=== PATIENT | male | born 1935 | race Caucasian/White ===

== ENCOUNTER 2019-11-30 16:30 | Emergency (ER) | payer MEDICARE, OTHER ==
[2019-11-30] MEDS ORDERED: Sodium Chloride 0.9% 1,000 ML IV SCH (17:30)
--- NOTE | 2019-11-30 18:23 | EDM.PDOC ---
<Cherise Green - Last Filed: 11/30/19 18:18> ED HPI GENERAL MEDICAL PROBLEM - General Chief Complaint: General Stated Complaint: MEDICAL VIA NORTH Time Seen by Provider: 11/30/19 16:40 Source of Information: Reports: Patient History Limitations: Reports: No Limitations - History of Present Illness INITIAL COMMENTS - FREE TEXT/NARRATIVE: pt arrived with a low grade temp and pt has bloody urine. Pt is having some chest pain. This has been having discomfort for several days. Onset: Today, Sudden Duration: Hour(s): Location: Reports: Chest, Abdomen Associated Symptoms: Reports: Chest Pain, Fever/Chills Chest Pain Score (Numeric/FACES): 3 - Related Data Allergies Allergy/AdvReac Type Severity Reaction Status Date / Time fosinopril Allergy Cannot Uncoded 11/30/19 17:00 Remember Home Meds: Home Meds Albuterol Sulfate [Albuterol Sulfate Hfa] 2 inh INH QID 11/30/19 [History] Allopurinol [Zyloprim] 100 mg PO BID 11/30/19 [History] Aspirin 81 mg PO DAILY 11/30/19 [History] Budesonide/Formoterol Fumarate [Symbicort 160-4.5 Mcg Inhaler] 4.5 gm IH BID 03/14 [History] Ciprofloxacin [Ciprofloxacin HCl] 250 mg PO BID 11/30/19 [History] Escitalopram Oxalate 10 mg PO DAILY 11/30/19 [History] Ferrous Gluconate 324 mg PO DAILY 11/30/19 [History] Furosemide [Lasix] 40 mg PO DAILY 11/30/19 [History] Gemfibrozil [Lopid] 600 mg PO BID 11/30/19 [History] Omeprazole 20 mg PO BIDAC 11/30/19 [History] Potassium Chloride 20 meq PO DAILY 11/30/19 [History] Sennosides/Docusate Sodium [Senna-S] 1 tab PO DAILY 11/30/19 [History] Valsartan [Diovan] 80 mg PO DAILY 11/30/19 [History] atorvaSTATin [Lipitor] 80 mg PO BEDTIME 11/30/19 [History] hydroCHLOROthiazide [Hydrochlorothiazide] 25 mg PO DAILY 11/30/19 [History] metFORMIN [Glucophage XR] 250 mg PO DAILY 11/30/19 [History] Social & Family History - Tobacco Use Smoking Status *Q: Never Smoker - Caffeine Use Caffeine Use: Reports: Coffee, Soda, Tea - Recreational Drug Use Recreational Drug Use: No ED ROS GENERAL - Review of Systems Review Of Systems: See Below Constitutional: Reports: Fever, Weakness HEENT: Reports: No Symptoms Respiratory: Reports: No Symptoms Cardiovascular: Reports: Chest Pain Endocrine: Reports: No Symptoms GI/Abdominal: Reports: Abdominal Pain, Other (pt is having some rt upper abdomanal pain) : Reports: Hematuria Musculoskeletal: Reports: No Symptoms Skin: Reports: No Symptoms ED EXAM, GENERAL - Physical Exam Exam: See Below Free Text/Narrative:: pt was sent from the snf with bloody urine and a low grade temp. On arrival here he talked about chest pain that he had for several days. He states the pain is there most of the time. Exam Limited By: No Limitations General Appearance: Alert, Anxious, Other (pt does not appear uncomfortable. ) Ears: Normal TMs Nose: Normal Inspection Throat/Mouth: Normal Inspection Head: Atraumatic Neck: Normal Inspection Respiratory/Chest: No Respiratory Distress Cardiovascular: Regular Rate, Rhythm, Tachycardia GI/Abdominal: Soft, Other (pt is tender in the rt upper abdoman. ) (Male) Exam: Deferred Rectal (Males) Exam: Deferred Back Exam: Normal Inspection Extremities: Normal Inspection Course - Vital Signs Last Recorded V/S: Last Vital Signs Temp 99.3 F 11/30/19 16:38 Pulse 82 11/30/19 21:37 Resp 19 11/30/19 21:37 BP 163/77 H 11/30/19 21:37 Pulse Ox 94 L 11/30/19 21:37 - Orders/Labs/Meds Orders: Active Orders 24 hr Category Date Time Status EKG Documentation Completion [RC] ASDIRECTED Care 11/30/19 18:25 Active Chest 1V Frontal [CR] Stat Exams 11/30/19 17:17 Taken Chest 2V [CR] Stat Exams 11/30/19 18:39 Taken Sodium Chloride 0.9% [Normal Saline] 1,000 ml Med 11/30/19 17:30 Active IV ASDIRECTED EKG 12 Lead [EK] Routine Ther 11/30/19 18:25 Ordered Medication Orders Sodium Chloride (Normal Saline) 1,000 mls @ 999 mls/hr IV ASDIRECTED DARION Last Admin: 11/30/19 18:16 Dose: 999 mls/hr Labs: Laboratory Tests 11/30/19 11/30/19 11/30/19 Range/Units 17:24 17:24 17:24 WBC 13.8 H (4.5-11.0) K/uL RBC 3.71 L (4.30-5.90) M/uL Hgb 10.7 L (12.0-15.0) g/dL Hct 34.6 L (40.0-54.0) % MCV 93 (80-98) fL MCH 29 (27-31) pg MCHC 31 L (32-36) % Plt Count 320 (150-400) K/uL Neut % (Auto) 80 H (36-66) % Lymph % (Auto) 9 L (24-44) % [place] % (Auto) 9 H (2-6) % Eos % (Auto) 2 (2-4) % Baso % (Auto) 0 (0-1) % Sodium 141 (140-148) mmol/L Potassium 4.1 (3.6-5.2) mmol/L Chloride 102 (100-108) mmol/L Carbon Dioxide 27 (21-32) mmol/L Anion Gap 12.5 (5.0-14.0) mmol/L BUN 49 H (7-18) mg/dL Creatinine 3.0 H (0.8-1.3) mg/dL Est Cr Clr Drug Dosing 20.84 mL/min Estimated GFR (MDRD) 20 L (>60) Glucose 131 H (74-106) mg/dL Lactic Acid 1.4 (0.4-2.0) mmol/L Calcium 8.2 L (8.5-10.1) mg/dL Total Bilirubin 0.2 (0.2-1.0) mg/dL AST 18 (15-37) U/L ALT 13 (12-78) U/L Alkaline Phosphatase 80 (46-116) U/L Troponin I < 0.017 (0.000-0.056) ng/mL Total Protein 6.4 (6.4-8.2) g/dL Albumin 2.7 L (3.4-5.0) g/dL Globulin 3.7 H (2.3-3.5) g/dL Albumin/Globulin Ratio 0.7 L (1.2-2.2) Lipase (73-393) U/L Urine Color (YELLOW) Urine Appearance (CLEAR) Urine pH (5.0-8.0) Ur Specific [place] (1.008-1.030) Urine Protein (NEGATIVE) mg/dL Urine Glucose (UA) (NEGATIVE) mg/dL Urine Ketones (NEGATIVE) mg/dL Urine Occult Blood (NEGATIVE) Urine Nitrite (NEGATIVE) Urine Bilirubin (NEGATIVE) Urine Urobilinogen (0.2-1.0) EU/dL Ur Leukocyte Esterase (NEGATIVE) Urine RBC (0-5) Urine WBC (0-5) Ur Epithelial Cells Amorphous Sediment Urine Bacteria Urine Mucus 11/30/19 11/30/19 Range/Units 17:24 19:16 WBC (4.5-11.0) K/uL RBC (4.30-5.90) M/uL Hgb (12.0-15.0) g/dL Hct (40.0-54.0) % MCV (80-98) fL MCH (27-31) pg MCHC (32-36) % Plt Count (150-400) K/uL Neut % (Auto) (36-66) % Lymph % (Auto) (24-44) % [place] % (Auto) (2-6) % Eos % (Auto) (2-4) % Baso % (Auto) (0-1) % Sodium (140-148) mmol/L Potassium (3.6-5.2) mmol/L Chloride (100-108) mmol/L Carbon Dioxide (21-32) mmol/L Anion Gap (5.0-14.0) mmol/L BUN (7-18) mg/dL Creatinine (0.8-1.3) mg/dL Est Cr Clr Drug Dosing mL/min Estimated GFR (MDRD) (>60) Glucose (74-106) mg/dL Lactic Acid (0.4-2.0) mmol/L Calcium (8.5-10.1) mg/dL Total Bilirubin (0.2-1.0) mg/dL AST (15-37) U/L ALT (12-78) U/L Alkaline Phosphatase (46-116) U/L Troponin I (0.000-0.056) ng/mL Total Protein (6.4-8.2) g/dL Albumin (3.4-5.0) g/dL Globulin (2.3-3.5) g/dL Albumin/Globulin Ratio (1.2-2.2) Lipase 277 (73-393) U/L Urine Color Red A (YELLOW) Urine Appearance Cloudy A (CLEAR) Urine pH 6.5 (5.0-8.0) Ur Specific [place] 1.020 (1.008-1.030) Urine Protein 100 H (NEGATIVE) mg/dL Urine Glucose (UA) Negative (NEGATIVE) mg/dL Urine Ketones Negative (NEGATIVE) mg/dL Urine Occult Blood Large H (NEGATIVE) Urine Nitrite Negative (NEGATIVE) Urine Bilirubin Small H (NEGATIVE) Urine Urobilinogen 0.2 (0.2-1.0) EU/dL Ur Leukocyte Esterase Negative (NEGATIVE) Urine RBC Packed H (0-5) Urine WBC 0-5 (0-5) Ur Epithelial Cells Not seen Amorphous Sediment Not seen Urine Bacteria Few Urine Mucus Not seen Meds: Medications Generic Name Dose Route Start Last Admin Trade Name Freq PRN Reason Stop Dose Admin Sodium Chloride 1,000 mls @ 999 mls/hr 11/30/19 17:30 11/30/19 18:16 Normal Saline IV 999 mls/hr ASDIRECTED DARION Administration - Re-Assessments/Exams Free Text/Narrative Re-Assessment/Exam: 11/30/19 18:26 pt has a creatnine of 3 and a gfr of 20. A urine has not been obtained at this point. Departure - Departure Disposition: DC/Tfer to [facility] 02 Clinical Impression: Pelviectasis of kidney - Discharge Information Referrals: Alden Merchant MD [Primary Care Provider] - Forms: ED Department Discharge Sepsis Event Note - Evaluation Sepsis Screening Result: No Definite Risk - Focused Exam Vital Signs: Vital Signs Temp Pulse Resp BP Pulse Ox 11/30/19 21:37 82 19 163/77 H 94 L 11/30/19 20:19 88 14 142/52 H 92 L 11/30/19 18:44 80 23 H 155/66 H 96 11/30/19 17:33 84 13 168/70 H 98 11/30/19 17:09 93 32 H 188/79 H 97 11/30/19 16:38 99.3 F 85 17 158/62 H 97 Date Exam was Performed: 11/30/19 Time Exam was Performed: 18:18 - My Orders Last 24 Hours: My Active Orders 11/30/19 18:39 Chest 2V [CR] Stat - Assessment/Plan Last 24 Hours: My Active Orders 11/30/19 18:39 Chest 2V [CR] Stat <OfficerSergio - Last Filed: 11/30/19 22:33> Course - Re-Assessments/Exams Free Text/Narrative Re-Assessment/Exam: Took over care from Dr. Green at 1900 reexamined on the patient he is severely demented the history is unreliable on exam he is tender to the abdomen review of lab work does show significant hematuria of uncertain etiology 11/30/19 19:58 Departure - Departure Time of Disposition: 22:33 Condition: Poor Sepsis Event Note - Focused Exam Date Exam was Performed: 11/30/19 Time Exam was Performed: 22:32 - Assessment/Plan Plan: Took over care from Dr. Green at 1900 Assessment Acuity = acute Site and laterality = left renal pelviectasis Etiology = unknown Manifestations = hematuria Location of injury = Home Lab values = WBC elevated at 13.8 consistent leukocytosis, hemoglobin low at 10.7 consistent normochromic anemia creatinine elevated at 3.0 consistent with acute renal failure stage G4 on top of chronic his baseline is around 2.0 lactic acid normal 1.8 troponin was negative chest x-ray shows no acute process CT scan describes the pelviectasis above Plan Call discussed case with Dr. Ordaz emergency room physician at [facility] he kindly accepted the patient at 2228 will be transported via EMS ground This note was dictated using RV ID voice recognition software please call with any questions on syntax or grammar.
--- NOTE | 2019-11-30 21:05 | CRLCT ---
INDICATION: Abdominal pain, hematuria TECHNIQUE: CT Abdomen and pelvis without i.v. contrast. Coronal and sagittal reformats were obtained. COMPARISON: None FINDINGS: Lower chest: Unremarkable. Liver: Unremarkable. Spleen: Unremarkable. Pancreas: Unremarkable. Gallbladder: Previous cholecystectomy noted without significant intra- or extrahepatic biliary ductal dilatation seen. Kidney: Mild left renal pelviectasis is present with hyperdense material seen in the left renal pelvis and left ureter, likely due to blood products from hematuria. The source of bleeding is not identified on noncontrast imaging. There are numerous hypodense and hyperdense renal lesions present bilaterally measuring up to 3.2 cm. These are incompletely characterized without the use of intravenous contrast. Adrenal: Unremarkable. Bowel: Unremarkable. The appendix is normal in appearance and size. Vascular: There is an infrarenal abdominal aortic aneurysm with an aneurysm sac measuring 4.8 cm in maximal short axis diameter and status post endovascular stenting. Lymph: Unremarkable. Peritoneum: Unremarkable. No pneumoperitoneum is seen. No significant ascites is noted. Pelvis: Unremarkable. Soft tissue: Unremarkable. Bone: Unremarkable for age. IMPRESSION: 1. Mild left renal pelviectasis is present with hyperdense material seen in the left renal pelvis and left ureter, likely due to blood products from hematuria. The source of bleeding is not identified on noncontrast imaging. Dictated by Toni Bhatti MD @ 11/30/2019 9:03:08 PM Please note that all CT scans at this facility use dose modulation, iterative reconstruction, and/or weight-based dosing when appropriate to reduce radiation dose to as low as reasonably achievable. Dictated by: Toni Bhatti MD @ 11/30/2019 21:04:23 (Electronically Signed)
--- NOTE | 2019-12-01 08:37 | CR ---
CHEST: Portable 11/30/2019 at 5:35 PM CLINICAL HISTORY:Chest pain COMPARISON:None FINDINGS: Heart size is normal. There has been previous sternotomy. There are atherosclerotic changes in the aorta.. Lung [place] are hyperaerated. There are no effusions.. Impression: Changes of COPD Previous sternotomy. No acute cardiopulmonary process
--- NOTE | 2019-12-01 08:40 | CR ---
CHEST: 2 view CLINICAL HISTORY:Chest pain COMPARISON:Earlier same day FINDINGS: Heart size and pulmonary vascularity are normal. Patient has had previous sternotomy. There are atherosclerotic changes in the aorta.. Lung [place] are hyperaerated but clear. Impression: No acute cardiopulmonary process COPD There are atherosclerotic changes in the aorta.
== END 2019-12-01 00:32 ==
LOC: JP.ED 16:30
DX: N13.30 Unspecified hydronephrosis (principal); Z88.8 Allergy status to other drugs, medicaments and biological substances; Z79.82 Long term (current) use of aspirin; Z79.899 Other long term (current) drug therapy; Z79.84 Long term (current) use of oral hypoglycemic drugs
CPT/HCPCS: 36415; 71045; 71046; 74176; 80053; 81001; 83605; 83690; 84484; 85025; 93005; 93010; 96360; 99285; J7030

== ENCOUNTER 2020-06-08 14:56 | Emergency (ER) | payer MEDICARE ==
--- NOTE | 2020-06-08 15:38 | EDM.PDOC ---
ED HPI GENERAL MEDICAL PROBLEM - General Chief Complaint: Genitourinary Problem Stated Complaint: MEDICAL VIA NORTH Time Seen by Provider: 06/08/20 15:20 Source of Information: Reports: Patient, EMS, [facility] Records History Limitations: Reports: Physical Impairment (Patient has significant dementia, questions are answered inconsistently) - History of Present Illness INITIAL COMMENTS - FREE TEXT/NARRATIVE: 84-year-old male, local group home resident developed hematuria today. This happened a few months ago and according to the family he needed "emergency surgery". He complains of chronic diffuse pain. He is acting chilled but is not febrile. Onset: Unknown/Unsure Associated Symptoms: Reports: Fever/Chills (Patient feels chilled but does not have a fever) - Related Data Allergies Allergy/AdvReac Type Severity Reaction Status Date / Time fosinopril Allergy Cannot Uncoded 06/08/20 15:22 Remember Home Meds: Home Meds Albuterol Sulfate [Albuterol Sulfate Hfa] 2 inh INH QID 11/30/19 [History] Allopurinol [Zyloprim] 100 mg PO BID 11/30/19 [History] Aspirin 81 mg PO DAILY 11/30/19 [History] Budesonide/Formoterol Fumarate [Symbicort 160-4.5 Mcg Inhaler] 4.5 gm IH BID 11/30/19 [History] Escitalopram Oxalate 10 mg PO DAILY 11/30/19 [History] Ferrous Gluconate 324 mg PO DAILY 11/30/19 [History] Omeprazole 20 mg PO BIDAC 11/30/19 [History] Potassium Chloride 20 meq PO DAILY 11/30/19 [History] Sennosides/Docusate Sodium [Senna-S] 1 tab PO DAILY 11/30/19 [History] atorvaSTATin [Lipitor] 80 mg PO BEDTIME 11/30/19 [History] gemfibroziL [Lopid] 600 mg PO BID 11/30/19 [History] hydroCHLOROthiazide [Hydrochlorothiazide] 25 mg PO DAILY 11/30/19 [History] metFORMIN [Glucophage XR] 250 mg PO DAILY 11/30/19 [History] Nystatin 1 applic TOP TID 06/08/20 [History] Tamsulosin HCl 1 tab PO DAILY 06/08/20 [History] Torsemide 40 mg PO DAILY 06/08/20 [History] Past Medical History HEENT History: Reports: Impaired Vision Cardiovascular History: Reports: Heart Failure, Hypertension Respiratory History: Reports: COPD, Sleep Apnea Gastrointestinal History: Reports: Chronic Constipation, GERD Genitourinary History: Reports: Other (See Below) Other Genitourinary History: blood in urine Musculoskeletal History: Reports: Gout, Other (See Below) Other Musculoskeletal History: history of falls. generalized weakness Neurological History: Reports: CVA Psychiatric History: Reports: Dementia Endocrine/Metabolic History: Reports: Diabetes, Type II, Hypothyroidism Hematologic History: Reports: Anemia, Iron Deficiency Social & Family History - Caffeine Use Caffeine Use: Reports: Coffee, Soda, Tea ED ROS GENERAL - Review of Systems Review Of Systems: See Below Constitutional: Reports: Chills, Malaise HEENT: Reports: No Symptoms Respiratory: Denies: Shortness of Breath Cardiovascular: Reports: Other (Chronic peripheral edema). Denies: Chest Pain GI/Abdominal: Reports: Abdominal Pain. Denies: Nausea, Vomiting Neurological: Reports: Other (Significant dementia) ED EXAM, RENAL/ - Physical Exam Exam: See Below Exam Limited By: No Limitations General Appearance: Alert, No Apparent Distress, Other (Very confused chron ically, inconsistent answers) Eye Exam: Bilateral Eye: Normal Inspection Head: Atraumatic Respiratory/Chest: No Respiratory Distress Cardiovascular: Regular Rate, Rhythm GI/Abdominal: Other (Reacts with tenderness to palpation across the lower abdomen) (Male) Exam: No Hernia, Other (There is some blood at the meatus). No: Inguinal Lymphadenopathy, Scrotal Swelling Neurological: Alert, Confused. No: Oriented Skin Exam: Other (Irregular superficial macular erythematous rash in the groin creases especially on the right) Course - Vital Signs Last Recorded V/S: Last Vital Signs Temp 97.3 F 06/08/20 15:49 Pulse 99 06/08/20 17:10 Resp 26 H 06/08/20 15:49 BP 132/58 L 06/08/20 17:10 Pulse Ox 98 06/08/20 15:49 - Orders/Labs/Meds Labs: Laboratory Tests 06/08/20 06/08/20 06/08/20 Range/Units 15:28 15:40 15:40 WBC 17.3 H (4.5-11.0) K/uL RBC 4.39 (4.30-5.90) M/uL Hgb 12.8 D (12.0-15.0) g/dL Hct 40.3 (40.0-54.0) % MCV 92 (80-98) fL MCH 29 (27-31) pg MCHC 32 (32-36) % Plt Count 333 (150-400) K/uL Neut % (Auto) 87 H (36-66) % Lymph % (Auto) 7 L (24-44) % [place] % (Auto) 6 (2-6) % Eos % (Auto) 0 L (2-4) % Baso % (Auto) 0 (0-1) % PT 10.8 (9.5-12.0) sec INR 0.99 (0.80-1.20) Sodium (140-148) mmol/L Potassium (3.6-5.2) mmol/L Chloride (100-108) mmol/L Carbon Dioxide (21-32) mmol/L Anion Gap (5.0-14.0) mmol/L BUN (7-18) mg/dL Creatinine (0.8-1.3) mg/dL Est Cr Clr Drug Dosing mL/min Estimated GFR (MDRD) (>60) Glucose (74-106) mg/dL Calcium (8.5-10.1) mg/dL Total Bilirubin (0.2-1.0) mg/dL AST (15-37) U/L ALT (12-78) U/L Alkaline Phosphatase (46-116) U/L Total Protein (6.4-8.2) g/dL Albumin (3.4-5.0) g/dL Globulin (2.3-3.5) g/dL Albumin/Globulin Ratio (1.2-2.2) Urine Color Red A (YELLOW) Urine Appearance Cloudy A (CLEAR) Urine pH 5.5 (5.0-8.0) Ur Specific [place] 1.015 (1.008-1.030) Urine Protein >=300 H (NEGATIVE) mg/dL Urine Glucose (UA) Negative (NEGATIVE) mg/dL Urine Ketones Trace H (NEGATIVE) mg/dL Urine Occult Blood Large H (NEGATIVE) Urine Nitrite Positive H (NEGATIVE) Urine Bilirubin Moderate H (NEGATIVE) Urine Urobilinogen 1.0 (0.2-1.0) EU/dL Ur Leukocyte Esterase Large H (NEGATIVE) Urine RBC Semi-packed H (0-5) Urine WBC 10-20 H (0-5) Ur Epithelial Cells Moderate Amorphous Sediment Not seen Urine Bacteria Many Urine Mucus Not seen 06/08/20 Range/Units 15:40 WBC (4.5-11.0) K/uL RBC (4.30-5.90) M/uL Hgb (12.0-15.0) g/dL Hct (40.0-54.0) % MCV (80-98) fL MCH (27-31) pg MCHC (32-36) % Plt Count (150-400) K/uL Neut % (Auto) (36-66) % Lymph % (Auto) (24-44) % [place] % (Auto) (2-6) % Eos % (Auto) (2-4) % Baso % (Auto) (0-1) % PT (9.5-12.0) sec INR (0.80-1.20) Sodium 137 L (140-148) mmol/L Potassium 4.3 (3.6-5.2) mmol/L Chloride 103 (100-108) mmol/L Carbon Dioxide 24 (21-32) mmol/L Anion Gap 14.3 H (5.0-14.0) mmol/L BUN 24 H (7-18) mg/dL Creatinine 1.9 H (0.8-1.3) mg/dL Est Cr Clr Drug Dosing 32.90 mL/min Estimated GFR (MDRD) 34 L (>60) Glucose 85 (74-106) mg/dL Calcium 8.2 L (8.5-10.1) mg/dL Total Bilirubin 0.2 (0.2-1.0) mg/dL AST 23 (15-37) U/L ALT 18 (12-78) U/L Alkaline Phosphatase 81 (46-116) U/L Total Protein 5.4 L (6.4-8.2) g/dL Albumin 2.4 L (3.4-5.0) g/dL Globulin 3.0 (2.3-3.5) g/dL Albumin/Globulin Ratio 0.8 L (1.2-2.2) Urine Color (YELLOW) Urine Appearance (CLEAR) Urine pH (5.0-8.0) Ur Specific [place] (1.008-1.030) Urine Protein (NEGATIVE) mg/dL Urine Glucose (UA) (NEGATIVE) mg/dL Urine Ketones (NEGATIVE) mg/dL Urine Occult Blood (NEGATIVE) Urine Nitrite (NEGATIVE) Urine Bilirubin (NEGATIVE) Urine Urobilinogen (0.2-1.0) EU/dL Ur Leukocyte Esterase (NEGATIVE) Urine RBC (0-5) Urine WBC (0-5) Ur Epithelial Cells Amorphous Sediment Urine Bacteria Urine Mucus Meds: Medications Discontinued Medications Generic Name Dose Route Start Last Admin Trade Name Isaac PRN Reason Stop Dose Admin Ceftriaxone Sodium 1 gm/ 50 mls @ 100 mls/hr 06/08/20 16:51 06/08/20 17:19 Sodium Chloride IV 06/08/20 17:20 100 mls/hr ONETIME ONE Administration - Re-Assessments/Exams Free Text/Narrative Re-Assessment/Exam: 06/08/20 17:15 UA was obtained that showed UTI with positive nitrite urine, many bacteria, WBCs and also gross hematuria. CBC and CMP were obtained. 06/08/20 17:16 White count was 17,000, hemoglobin normal. Creatinine and BUN are near baseline levels. A urine culture was initiated, consideration was made for admission but I think this patient can be treated as an outpatient while in the group home. A three-way Tsang was placed to decompress the bladder, 400 cc of red urine was released but no clots and there was good flow. He was given 1 g of IV Rocephin, and will be placed on 500 mg of oral Ceftin twice daily pending urine culture. If hematuria is persisting next week, hemoglobin can be rechecked and Tsang can be removed on Thursday. A urology consult reestablished. Departure - Departure Time of Disposition: 18:38 Disposition: DC/Tfer to [facility] Clinical Impression: UTI, Urinary tract infectious disease Hematuria Qualifiers: Hematuria type: gross Qualified Code(s): R31.0 - Gross hematuria - Discharge Information Instructions: Urinary Tract Infection, Adult Referrals: PCP,None [Primary Care Provider] - Forms: ED Department Discharge Care Plan Goals: Take antibiotic twice daily for 1 week as prescribed. Start on June 09. Tsang can be removed on Thursday, if clots form or Tsang is obstructed, flush clean with three-way port. Consider urology consultation next week if hematuria persists. We will be in touch with you with culture results when available.
[2020-06-08] MEDS ORDERED: cefTRIAXone 1 GM in Sodium Chloride 0.9% 50 ML IV ONE (16:51)
== END 2020-06-08 18:40 ==
LOC: JP.ED 14:56
DX: N39.0 Urinary tract infection, site not specified (principal); R31.0 Gross hematuria; R21 Rash and other nonspecific skin eruption; R41.0 Disorientation, unspecified; I11.0 Hypertensive heart disease with heart failure; I50.9 Heart failure, unspecified; J44.9 Chronic obstructive pulmonary disease, unspecified; K21.9 Gastro-esophageal reflux disease without esophagitis; E11.9 Type 2 diabetes mellitus without complications; E03.9 Hypothyroidism, unspecified; M10.9 Gout, unspecified; F03.90 Unspecified dementia, unspecified severity, without behavioral disturbance, psychotic disturbance, mood disturbance, and anxiety; Z86.73 Personal history of transient ischemic attack (TIA), and cerebral infarction without residual deficits; Z88.8 Allergy status to other drugs, medicaments and biological substances; Z79.82 Long term (current) use of aspirin; Z79.84 Long term (current) use of oral hypoglycemic drugs; Z79.899 Other long term (current) drug therapy
CPT/HCPCS: 36415; 51702; 80053; 81001; 85025; 85610; 87086; 87088; 87186; 96374; 99284; J0696; J7050